=== PATIENT | female | born 1950 | race Caucasian/White ===

== ENCOUNTER 2018-12-03 13:05 | Emergency (ER) | payer MEDICAID, MEDICARE ==
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
[2018-12-03 15:57] VITALS: BP 168/84
== END 2018-12-03 15:57 | disposition home or self-care (01) ==
LOC: ED 13:05
DX: M54.2 Cervicalgia (principal); M54.5 Low back pain; Z79.1 Long term (current) use of non-steroidal anti-inflammatories (NSAID); Z79.899 Other long term (current) drug therapy; V87.7XXA Person injured in collision between other specified motor vehicles (traffic), initial encounter; Y93.89 Activity, other specified; Y92.488 Other paved roadways as the place of occurrence of the external cause; Y99.8 Other external cause status
CPT/HCPCS: 72040; 72100; 99283